=== PATIENT | female | born 1980 | race Caucasian/White ===

== ENCOUNTER 2017-02-01 10:46 | Outpatient (CLI) | payer OTHER ==
[2017-02-01 17:30] LABS: BASOPHILS % (AUTO) 0.6 %; EOSINOPHILS # (AUTO) 0.2 10^3/uL (0.0-0.7); EOSINOPHILS % (AUTO) 2.3 %; HGB - HEMOGLOBIN 13.4 g/dL (12.0-16.0); LYMPHOCYTES # (AUTO) 2.4 10^3/uL (1.5-3.5); LYMPHOCYTES % (AUTO) 34.9 %; MEAN CORPUSCULAR HEMOGLOBIN 28.1 pg (27.0-31.0); MEAN CORPUSCULAR HGB CONC 33.6 g/dL (32.0-36.0); MEAN CORPUSCULAR VOLUME 83.6 fL (81.0-99.0); MEAN PLATELET VOLUME 7.7 fL (7.9-10.8); MONOCYTES # (AUTO) 0.4 10^3/uL (0.0-1.0); MONOCYTES % (AUTO) 6.5 %; NEUTROPHILS # (AUTO) 3.8 10^3/uL (1.5-6.6); NEUTROPHILS % (AUTO) 55.7 %; NUCLEATED RED BLOOD CELLS AUTO 0.1 /100WBC; RED BLOOD COUNT 4.78 10^6/uL (4.20-5.40); RED CELL DISTRIBUTION WIDTH 13.6 % (12.0-15.0); UNCORRECTED WHITE BLOOD COUNT 6.9 x10^3/uL; WHITE BLOOD COUNT 6.9 x10^3/uL (4.8-10.8)
[2017-02-01 17:48] LABS: HEMOGLOBIN A1C 0.53 g/dL
[2017-02-01 17:50] LABS: ALBUMIN/GLOBULIN RATIO 1.4 (1.0-2.2); BILIRUBIN,TOTAL 0.6 mg/dL (0.2-1.0); BUN - BLOOD UREA NITROGEN 12 mg/dL (6-20); CALCIUM 8.9 mg/dL (8.5-10.3); CARBON DIOXIDE - CO2 25 mmol/L (21-32); CHLORIDE 108 mmol/L (101-111); CHOL/HDL RATIO 5.3 (<4.4); CHOLESTEROL 226 mg/dL; CREATININE 0.7 mg/dL (0.4-1.0); GFR - MDRD 94 (>89); GLUCOSE 103 mg/dL (70-100); HDL CHOLESTEROL 43 mg/dL; LDL/HDL RATIO 3.8 (<4.4); POTASSIUM 4.1 mmol/L (3.5-5.0); SODIUM 141 mmol/L (135-145); TRIGLYCERIDES 100 mg/dL; VLDL CHOLESTEROL 20 mg/dL
[2017-02-01 18:07] LABS: FERRITIN 25.2 ng/mL (11.0-306.8); TOTAL T3 1.3 ng/mL (0.87-1.78)
[2017-02-01 18:19] LABS: THYROID STIMULATING HORMONE 2.52 uIU/mL (0.34-5.60)
[2017-02-05 17:31] LABS: T3 REVERSE 10 ng/dL (8-25)
== END 2017-02-01 10:47 | disposition home or self-care (01) ==
LOC: LAB.F 10:46
PROVIDERS: ATTEND Family Medicine
DX: Z00.00 Encounter for general adult medical examination without abnormal findings (principal); R53.83 Other fatigue; E03.9 Hypothyroidism, unspecified; E55.9 Vitamin D deficiency, unspecified
CPT/HCPCS: 36415; 80053; 80061; 82306; 82626; 82728; 83036; 84439; 84443; 84480; 84481; 84482; 85025

== ENCOUNTER 2017-02-05 12:03 | Outpatient (CLI) | payer OTHER | END 2017-02-05 12:04 | disposition home or self-care (01) | LOC: DI.S 12:03 | PROVIDERS: ATTEND Family Medicine | DX: Z53.9 Procedure and treatment not carried out, unspecified reason (principal) ==

== ENCOUNTER 2017-08-01 21:08 | Emergency (ER) | payer OTHER ==
[2017-08-01 21:14] VITALS: BP 146/106
[2017-08-01] MEDS ORDERED: HYDROcod/ACETAM 5/325 MG TABLET PO STA (21:24)
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
--- NOTE | 2017-08-01 22:12 | XRAY Preliminary Report ---
Exam: XR SHOULDER 3 VIEW LT IMPRESSION: Normal shoulder radiography. [facility] SITE ID: [id number]
--- NOTE | 2017-08-01 22:13 | XRAY Preliminary Report ---
Exam: XR LUMBAR SPINE 2 VIEW IMPRESSION: 1. No lumbar fracture or malalignment seen. 2. Moderate L5-S1 disk height loss. [facility] SITE ID: [id number]
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
--- NOTE | 2017-08-01 22:18 | XRAY Preliminary Report ---
Exam: XR CERVICAL SPINE 2 VIEW IMPRESSION: No cervical fracture or malalignment identified. There are prominent prevertebral soft ti ssues at the cranial aspect of the cervical spine which may be projectional due to slight rotation. I f there is continued clinical concern for cervical spine fracture, there should be low threshold for CT. [facility] SITE ID: [id number]
[2017-08-01] MEDS ORDERED: HYDROcod/ACET 5/325 Prepack 6 PO STA (22:28)
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
== END 2017-08-01 22:40 | disposition home or self-care (01) ==
LOC: ED 21:08
DX: S19.9XXA Unspecified injury of neck, initial encounter (principal); V53.9XXA Unspecified occupant of pick-up truck or van injured in collision with car, pick-up truck or van in traffic accident, initial encounter; M54.5 Low back pain
CPT/HCPCS: 72040; 72100; 73030; 99283; A9270

== ENCOUNTER 2020-09-26 07:00 | Outpatient (CLI) | payer OTHER | END 2020-09-26 23:59 | disposition home or self-care (01) | LOC: LAB.S 07:00 | PROVIDERS: ATTEND Physician Assistant Medical | DX: R10.9 Unspecified abdominal pain (principal) | CPT/HCPCS: 87086 ==

== ENCOUNTER 2020-09-26 20:12 | Emergency (ER) | payer OTHER ==
--- NOTE | 2020-09-26 20:37 | ED Physician Documentation ---
PD HPI CHEST PAIN - Stated complaint Stated Complaint: ABD/BACK PX - Chief complaint Chief Complaint: Abd Pain - History obtained from History obtained from: Patient - Additional information Additional information: 39-year-old woman has had intermittent epigastric pain for a while now for the last 2 to 3 days has had severe pain radiating to the back. She does not notice an associated with eating. She is nauseous but has not vomited. No history of abdominal surgeries. She has been losing weight on purpose recently and has been successful. Review of Systems Constitutional: reports: Reviewed and negative Eyes: reports: Reviewed and negative Ears: reports: Reviewed and negative Nose: reports: Reviewed and negative Throat: reports: Reviewed and negative PD PAST MEDICAL HISTORY - Past Medical History Past Medical History: No - Past Surgical History Past Surgical History: No - Present Medications Home Medications: Ambulatory Orders Medication Instructions Recorded Confirmed DULoxetine [Cymbalta] 20 mg PO DAILY 08/01/17 08/01/17 HYDROcod/ACETAM 5/325 [[place] 5/325] 1 - 2 tab PO Q6H PRN #15 tablet 09/26/20 - Allergies Allergies/Adverse Reactions: Allergies Allergy/AdvReac Type Severity Reaction Status Date / Time No Known Drug Allergies Allergy Verified 09/26/20 20:16 - Social History Does the pt smoke?: No Smoking Status: Never smoker Does the pt drink ETOH?: No Does the pt have substance abuse?: No - Immunizations Immunizations are current?: Yes - POLST Patient has POLST: No PD ED PE NORMAL - Vitals Vital signs reviewed: Yes - General General: Alert and oriented X 3, No acute distress - Cardiac Cardiac: RRR, No murmur - Respiratory Respiratory: No respiratory distress, Clear bilaterally - Abdomen Abdomen: Other (Mild tenderness in the right upper quadrant with positive Whitaker sign. No flank tenderness. No lower abdominal or diffuse tenderness.) - Extremities Extremities: No edema, No calf tenderness / cord - Neuro Neuro: Alert and oriented X 3, Normal speech Results - Vitals Vitals: Vital Signs - 24 hr 09/26/20 09/26/20 20:16 20:28 Temperature 36.5 C 36.5 C Heart Rate 76 76 Respiratory 16 16 Rate Blood Pressure 160/100 H 160/100 H O2 Saturation 98 98 Oxygen O2 Source Room air - Labs Labs: Laboratory Tests 09/26/20 09/26/20 09/26/20 20:38 20:41 20:41 WBC 12.9 H RBC 5.06 Hgb 14.5 Hct 43.9 MCV 86.8 MCH 28.7 MCHC 33.0 RDW 12.5 Plt Count 324 MPV 10.0 Neut # (Auto) 10.1 H Lymph # (Auto) 2.0 [place] # (Auto) 0.7 Eos # (Auto) 0.1 Baso # (Auto) 0.0 Absolute Nucleated RBC 0.00 Nucleated RBC % 0.0 Sodium 138 Potassium 4.0 Chloride 105 Carbon Dioxide 24 Anion Gap 9.0 BUN 12 Creatinine 0.7 Estimated GFR (MDRD) 92 Glucose 111 H Calcium 9.5 Total Bilirubin 0.9 AST 449 H ALT 249 H Alkaline Phosphatase 76 Total Protein 7.4 Albumin 4.3 Globulin 3.1 Albumin/Globulin Ratio 1.4 Lipase 47 Urine Color DARK YELLOW Urine Clarity HAZY Urine pH 7.5 Ur Specific [place] 1.025 Urine Protein NEGATIVE Urine Glucose (UA) NEGATIVE Urine Ketones NEGATIVE Urine Occult Blood NEGATIVE Urine Nitrite NEGATIVE Urine Bilirubin NEGATIVE Urine Urobilinogen 1 (NORMAL) Ur Leukocyte Esterase SMALL H Urine RBC 0-5 Urine WBC 6-10 H Ur Squamous Epith Cells MOD Squamous H Urine Crystals 3-5 Calcium Oxalate Urine Bacteria Few Ur Microscopic Review INDICATED Urine Culture Comments NOT INDICATED Urine HCG, Qual NEGATIVE PD MEDICAL DECISION MAKING - ED course ED course: 39-year-old woman presents with worsening pain consistent with a biliary etiology. Labs show very modest white counts and modest elevation in liver enzymes. Ultrasound shows gallstones without evidence of cholecystitis. Also incidental fatty liver and nephrolith. Discussed need for surgical follow-up and signs and symptoms to return for. Departure - Departure Disposition: Home, Self Care Clinical Impression: Biliary colic Condition: Good Record reviewed to determine appropriate education?: Yes Instructions: ED Gallstone W Biliary Colic Follow-Up: Trevor Martin MD [Provider Admit Priv/Credential] - Prescriptions: HYDROcod/ACETAM 5/325 [[place] 5/325] 1 - 2 tab PO Q6H PRN #15 tablet PRN Reason: Pain Comments: Return if worsening, if your skin yellows, or if you develop fever. Otherwise as discussed you need to follow-up with a surgeon, calling tomorrow for an appointment to be evaluated for cholecystectomy.
[2020-09-26 20:48] LABS: GLUCOSE, URINE (UA) NEGATIVE (NEGATIVE); KETONES,URINE (UA) NEGATIVE (NEGATIVE); LEUKOCYTE ESTERASE, URINE SMALL (NEGATIVE); NITRITE,URINE NEGATIVE (NEGATIVE); OCCULT BLOOD,URINE NEGATIVE (NEGATIVE); PH,URINE 7.5 PH (5.0-7.5); PROTEIN,URINE NEGATIVE (NEGATIVE); UROBILINOGEN,URINE 1 (NORMAL) E.U./dL (NORMAL)
[2020-09-26 20:50] LABS: BASOPHILS % (AUTO) 0.2 %; EOSINOPHILS # (AUTO) 0.1 10^3/uL (0.0-0.7); EOSINOPHILS % (AUTO) 0.5 %; HCT - HEMATOCRIT 43.9 % (37.0-47.0); HGB - HEMOGLOBIN 14.5 g/dL (12.0-16.0); LYMPHOCYTES % (AUTO) 15.1 %; MEAN CORPUSCULAR HEMOGLOBIN 28.7 pg (27.0-31.0); MEAN CORPUSCULAR VOLUME 86.8 fL (81.0-99.0); MONOCYTES # (AUTO) 0.7 10^3/uL (0.0-1.0); MONOCYTES % (AUTO) 5.7 %; NEUTROPHILS # (AUTO) 10.1 10^3/uL (1.5-6.6); NEUTROPHILS % (AUTO) 78.3 %; PLT - PLATELET COUNT 324 10^3/uL (130-450); RED BLOOD COUNT 5.06 10^6/uL (4.20-5.40); RED CELL DISTRIBUTION WIDTH 12.5 % (12.0-15.0); WHITE BLOOD COUNT 12.9 x10^3/uL (4.8-10.8)
[2020-09-26 20:53] LABS: CLARITY,URINE HAZY (CLEAR); HCG UR QUAL NEGATIVE
[2020-09-26 20:54] LABS: BILIRUBIN,URINE NEGATIVE (NEGATIVE); ICTOTEST,URINE NEGATIVE
[2020-09-26 21:06] LABS: ALBUMIN 4.3 g/dL (3.2-5.5); ALBUMIN/GLOBULIN RATIO 1.4 (1.0-2.2); BILIRUBIN,TOTAL 0.9 mg/dL (0.2-1.0); CALCIUM 9.5 mg/dL (8.5-10.3); CREATININE 0.7 mg/dL (0.4-1.0); TOTAL PROTEIN 7.4 g/dL (6.7-8.2)
[2020-09-26 21:06] LABS: BACTERIA,URINE Few /HPF (None Seen); CRYSTALS,URINE 3-5 Calcium Oxalate /LPF; RBC,URINE 0-5 /HPF (0-5); SQUAMOUS EPITHELIAL CELL,UR MOD Squamous (<= Few)
[2020-09-26] MEDS ORDERED: HYDROcod/ACET 5/325 Prepack 4 PO STA (21:34)
--- NOTE | 2020-09-26 21:39 | Ultrasound Report ---
PROCEDURE: Abdomen Limited INDICATIONS: RUQ pain TECHNIQUE: Real-time focused scanning was performed of the abdomen, with image documentation. COMPARISON: 07/05/2013 FINDINGS: Liver is within normal limits. Gallbladder calculi are present with no evidence of gallbladder wall t hickening. No biliary ductal dilatation. Pancreas is not well seen. Right kidney demonstrates a 5 mm calculus without hydronephrosis. IMPRESSION: 1. Cholelithiasis with no evidence of cholecystitis. 2. Nonobstructing right renal calculus. Reviewed by: Camacho Lacy MD on 09/26/2020 9:38 PM PDT Approved by: Camacho Lacy MD on 09/26/2020 9:38 PM PDT Station ID: [id number]
[2020-09-26 21:54] VITALS: BP 135/95
== END 2020-09-26 21:55 | disposition home or self-care (01) ==
LOC: ED 20:12
DX: K80.70 Calculus of gallbladder and bile duct without cholecystitis without obstruction (principal); R10.9 Unspecified abdominal pain
CPT/HCPCS: 36415; 80053; 81001; 81003; 81025; 83690; 85025; 87086; 99284

== ENCOUNTER → 2020-12-13 | Outpatient (CLI) | payer OTHER | LOC: LAB.S 08:00 | PROVIDERS: ATTEND Physician Assistant | DX: J03.90 Acute tonsillitis, unspecified (principal) | CPT/HCPCS: 87070 ==

== ENCOUNTER 2021-02-02 15:15 | Outpatient (CLI) | payer OTHER | END 2021-02-02 23:59 | disposition home or self-care (01) | LOC: LAB.N 15:15 | PROVIDERS: ATTEND Physician Assistant Medical | DX: R05 Cough (principal); Z20.822 Contact with and (suspected) exposure to COVID-19 ==

== ENCOUNTER 2021-10-20 08:00 | Outpatient (CLI) | payer OTHER ==
[2021-10-20 20:03] LABS: BILIRUBIN,URINE NEGATIVE (NEGATIVE); GLUCOSE, URINE (UA) NEGATIVE (NEGATIVE); KETONES,URINE (UA) NEGATIVE (NEGATIVE); LEUKOCYTE ESTERASE, URINE SMALL (NEGATIVE); NITRITE,URINE NEGATIVE (NEGATIVE); OCCULT BLOOD,URINE NEGATIVE (NEGATIVE); PH,URINE 7.5 PH (5.0-7.5); PROTEIN,URINE NEGATIVE (NEGATIVE); UROBILINOGEN,URINE 0.2 (NORMAL) E.U./dL (NORMAL)
[2021-10-20 20:07] LABS: CLARITY,URINE HAZY (CLEAR)
[2021-10-20 20:12] LABS: BACTERIA,URINE Few /HPF (None Seen); RBC,URINE 0-5 /HPF (0-5); SQUAMOUS EPITHELIAL CELL,UR MOD Squamous (<= Few); WBC,URINE 0-3 /HPF (0-5)
== END 2021-10-20 23:59 | disposition home or self-care (01) ==
LOC: LAB.S 08:00
PROVIDERS: ATTEND Emergency Medicine
DX: N30.00 Acute cystitis without hematuria (principal)
CPT/HCPCS: 81001; 87086

== ENCOUNTER 2021-12-07 08:00 | Outpatient (CLI) | payer OTHER | END 2021-12-07 23:59 | disposition home or self-care (01) | LOC: LAB 08:00 | PROVIDERS: ATTEND Registered Nurse | DX: J02.9 Acute pharyngitis, unspecified (principal) | CPT/HCPCS: 87070 ==

== ENCOUNTER 2022-03-08 06:03 | Emergency (ER) | payer OTHER ==
[2022-03-08 06:34] LABS: BASOPHILS % (AUTO) 0.4 %; EOSINOPHILS # (AUTO) 0.1 10^3/uL (0.0-0.7); EOSINOPHILS % (AUTO) 0.6 %; HCT - HEMATOCRIT 39.5 % (37.0-47.0); HGB - HEMOGLOBIN 13.4 g/dL (12.0-16.0); LYMPHOCYTES # (AUTO) 1.4 10^3/uL (1.5-3.5); LYMPHOCYTES % (AUTO) 12.6 %; MEAN CORPUSCULAR HEMOGLOBIN 29.3 pg (27.0-31.0); MEAN CORPUSCULAR HGB CONC 33.9 g/dL (32.0-36.0); MEAN CORPUSCULAR VOLUME 86.2 fL (81.0-99.0); MEAN PLATELET VOLUME 9.5 fL (7.9-10.8); MONOCYTES # (AUTO) 0.8 10^3/uL (0.0-1.0); MONOCYTES % (AUTO) 7.6 %; NEUTROPHILS # (AUTO) 8.5 10^3/uL (1.5-6.6); NEUTROPHILS % (AUTO) 78.4 %; PLT - PLATELET COUNT 321 10^3/uL (130-450); RED BLOOD COUNT 4.58 10^6/uL (4.20-5.40); RED CELL DISTRIBUTION WIDTH 12.3 % (12.0-15.0); WHITE BLOOD COUNT 10.8 x10^3/uL (4.8-10.8)
[2022-03-08 06:35] LABS: BILIRUBIN,URINE NEGATIVE (NEGATIVE); GLUCOSE, URINE (UA) NEGATIVE (NEGATIVE); KETONES,URINE (UA) NEGATIVE (NEGATIVE); LEUKOCYTE ESTERASE, URINE TRACE (NEGATIVE); NITRITE,URINE NEGATIVE (NEGATIVE); OCCULT BLOOD,URINE NEGATIVE (NEGATIVE); PH,URINE 8.5 PH (5.0-7.5); PROTEIN,URINE NEGATIVE (NEGATIVE); UROBILINOGEN,URINE 1 (NORMAL) E.U./dL (NORMAL)
[2022-03-08 06:36] LABS: CLARITY,URINE CLOUDY (CLEAR)
[2022-03-08 06:38] LABS: HCG UR QUAL NEGATIVE
[2022-03-08] MEDS ORDERED: ONDANSETRON 4 MG/2 ML VIAL IVP STA ×3 (06:42→18:18)
[2022-03-08] MEDS ORDERED: MORPHINE 2 MG/ML CARPUJECT IVP STA ×2 (06:42→11:01)
[2022-03-08] MEDS ORDERED: SODIUM CHLORIDE 0.9% 1,000 ML IV STA ×3 (06:42→23:12)
[2022-03-08 06:43] LABS: AMORPHOUS SEDIMENT,UR Marked /LPF; BACTERIA,URINE Rare /HPF (None Seen); RBC,URINE None Seen /HPF (0-5); SQUAMOUS EPITHELIAL CELL,UR MOD Squamous (<= Few); WBC,URINE 0-3 /HPF (0-5)
--- NOTE | 2022-03-08 06:45 | ED Physician Documentation ---
History of Present Illness - Stated complaint Stated Complaint: ABD PX - Chief complaint Chief Complaint: Abd Pain - History obtained from History obtained from: Patient - Additonal information Additional information: 41-year-old woman with past medical history of gallstones diagnosed over a year ago presents with right upper quadrant pain radiating to the back that is intermittent, severe, starting around 8 PM last night and occurring into the early hours of this morning. Patient states that she has had attacks of gall like this in the past but never so protracted and severe.Denies fever, urinary symptoms. Does endorse nonbloody nonbilious vomiting. Review of Systems Ten Systems: 10 systems reviewed and negative Constitutional: denies: Fever, Chills GI: reports: Abdominal Pain, Nausea, Vomiting. denies: Diarrhea PD PAST MEDICAL HISTORY - Past Surgical History Past Surgical History: No - Present Medications Home Medications: Ambulatory Orders Medication Instructions Recorded Confirmed DULoxetine [Cymbalta] 20 mg PO DAILY 08/01/17 08/01/17 HYDROcod/ACETAM 5/325 [[place] 5/325] 1 - 2 tab PO Q6H PRN #15 tablet 09/26/20 - Allergies Allergies/Adverse Reactions: Allergies Allergy/AdvReac Type Severity Reaction Status Date / Time No Known Drug Allergies Allergy Verified 03/08/22 06:16 - Social History Does the pt smoke?: No Smoking Status: Never smoker Does the pt drink ETOH?: No Does the pt have substance abuse?: No - Immunizations Immunizations are current?: Yes - POLST Patient has POLST: No PD ED PE NORMAL - Vitals Vital signs reviewed: Yes - General General: Alert and oriented X 3, Other (Moderate distress) - HEENT HEENT: Atraumatic, PERRL, EOMI - Neck Neck: Supple, no meningeal sign - Cardiac Cardiac: RRR - Respiratory Respiratory: No respiratory distress, Clear bilaterally - Abdomen Abdomen: Other (Right upper quadrant tender to palpation. Discomfort diffusely.) - Back Back: No CVA TTP - Derm Derm: Normal color, Warm and dry - Extremities Extremities: No deformity - Neuro Neuro: No motor deficit, No sensory deficit - Psych Psych: Normal mood, Normal affect Results - Vitals Vitals: Vital Signs - 24 hr 03/08/22 06:13 Temperature 36.5 C Heart Rate 75 Respiratory 22 Rate Blood Pressure 170/98 H O2 Saturation 99 Oxygen O2 Source Room air - Labs Labs: Laboratory Tests 03/08/22 03/08/22 03/08/22 06:28 06:28 06:28 WBC 10.8 RBC 4.58 Hgb 13.4 Hct 39.5 MCV 86.2 MCH 29.3 MCHC 33.9 RDW 12.3 Plt Count 321 MPV 9.5 Neut # (Auto) 8.5 H Lymph # (Auto) 1.4 L [place] # (Auto) 0.8 Eos # (Auto) 0.1 Baso # (Auto) 0.0 Absolute Nucleated RBC 0.00 Nucleated RBC % 0.0 Urine Color YELLOW Urine Clarity CLOUDY Urine pH 8.5 H Ur Specific [place] 1.015 Urine Protein NEGATIVE Urine Glucose (UA) NEGATIVE Urine Ketones NEGATIVE Urine Occult Blood NEGATIVE Urine Nitrite NEGATIVE Urine Bilirubin NEGATIVE Urine Urobilinogen 1 (NORMAL) Ur Leukocyte Esterase TRACE H Ur Microscopic Review INDICATED Urine Culture Comments Not Reportable Urine HCG, Qual NEGATIVE PD MEDICAL DECISION MAKING - ED course ED course: 41-year-old woman presented with right upper quadrant abdominal pain consistent with gallstone colic. Symptomatic care provided. We will follow-up labs and reevaluate.
[2022-03-08 06:48] LABS: ALBUMIN 4.1 g/dL (3.2-5.5); ALBUMIN/GLOBULIN RATIO 1.3 (1.0-2.2); BILIRUBIN,TOTAL 1.7 mg/dL (0.2-1.0); CALCIUM 8.9 mg/dL (8.5-10.3); CREATININE 0.6 mg/dL (0.4-1.0); POTASSIUM 3.9 mmol/L (3.5-5.0); TOTAL PROTEIN 7.3 g/dL (6.7-8.2)
--- OUTSIDE RECORDS SUMMARY | 2022-03-08 07:12 | EXTERNAL MEDICAL SUMMARY RPT | Continuity of Care Document ---
:1980 Author Organization [place] Address [address] [place] [address] Phone Allergies No information. Encounters No information. Functional Status No information. Immunizations No information. Medications date description facility +0000 clotrimazole [facility] +0000 fluconazole [facility] +0000 clotrimazole [facility] [place] +0000 fluconazole [facility] Problems No information. Procedures date description facility +0000 Visit Code Hold [facility] Results/Labs No information. Social History No information. Vital Signs date measurement value units +0000 BMI BMI 38.04 kg/m2 +0000 BP_diastolic BP_diastolic 106 mm[H g] +0000 BP_systolic BP_systolic 157 mm[Hg] +0000 heart_rate heart_rate 84 /min +0000 height_metric height_metric 170.18 cm +0000 height_standard height_standard 67 in +0000 respiration_rate respiration_rate 15 /min +0000 temperature_metric temperature_metric 36.39 C +0000 temperature_standard temperature_standard 9 7.5 F +0000 weight_metric weight_metric 109.77 kg +0000 weight_standard weight_standard 242 lb
--- NOTE | 2022-03-08 08:53 | Ultrasound Report ---
PROCEDURE: Abdomen Limited INDICATIONS: gallbladder ultrasound TECHNIQUE: Real-time scanning was performed of the abdominal and retroperitoneal organs, with image documentatio n. COMPARISON: None. FINDINGS: Liver: Liver is normal in size and homogeneous in echotexture. Gallbladder: Focus of nonmobile echogenicity is noted along the posterior wall without vascular flow. Wall thickness is within normal limits measuring 2.8 mm. Positive sonographic Whitaker's sign is prese nt. Biliary ducts: Intrahepatic bile ducts are non-dilated. Extrahepatic bile duct caliber measures 7.7 mm. Normal is 6-7 mm or less in diameter, or 10 mm or less post-cholecystectomy. Pancreas: Visualized portions of the pancreas are sonographically normal. Kidneys: Right kidney measures 11.3 cm long. No hydronephrosis or nephrolithiasis. No solid masses . Aorta: Visualized aorta is normal in caliber at less than 3 cm. Iliacs: Proximal common iliac arteries are normal in caliber at less than 2.5 cm. IVC: Intrahepatic inferior vena cava is patent. Miscellaneous: No free abdominal fluid. IMPRESSION: Focus of presumed adherent sludge is present. Wall thickness is within normal limits. Although a sono graphic Whitaker's sign is present, other imaging findings are not definitively conclusive for acute ch olecystitis and clinical correlation is recommended. Reviewed by: Silvia Hendrix MD on 03/08/2022 8:51 AM PDT Approved by: Silvia Hendrix MD on 03/08/2022 8:51 AM PDT Station ID: [id number]
[2022-03-08] MEDS ORDERED: PIPERACILLIN/TAZOBACTAM 4.5 GM in SODIUM CHLORIDE 0.9% MINIBAG 100 ML IV STA (08:59)
[2022-03-08] MEDS ORDERED: KETOROLAC 30 MG/ML VIAL IVP STA (09:08)
[2022-03-08 09:33] LABS: BASOPHILS % (AUTO) 0.3 %; EOSINOPHILS % (AUTO) 0.4 %; HCT - HEMATOCRIT 39.3 % (37.0-47.0); LYMPHOCYTES # (AUTO) 1.4 10^3/uL (1.5-3.5); LYMPHOCYTES % (AUTO) 13.6 %; MEAN CORPUSCULAR HEMOGLOBIN 29.1 pg (27.0-31.0); MEAN CORPUSCULAR HGB CONC 33.1 g/dL (32.0-36.0); MEAN CORPUSCULAR VOLUME 88.1 fL (81.0-99.0); MEAN PLATELET VOLUME 9.5 fL (7.9-10.8); MONOCYTES # (AUTO) 0.9 10^3/uL (0.0-1.0); MONOCYTES % (AUTO) 8.6 %; NEUTROPHILS # (AUTO) 8.1 10^3/uL (1.5-6.6); NEUTROPHILS % (AUTO) 76.9 %; PLT - PLATELET COUNT 307 10^3/uL (130-450); RED BLOOD COUNT 4.46 10^6/uL (4.20-5.40); RED CELL DISTRIBUTION WIDTH 12.4 % (12.0-15.0); WHITE BLOOD COUNT 10.5 x10^3/uL (4.8-10.8)
[2022-03-08 10:14] LABS: ALBUMIN 3.8 g/dL (3.2-5.5); ALBUMIN/GLOBULIN RATIO 1.2 (1.0-2.2); BILIRUBIN,TOTAL 1.7 mg/dL (0.2-1.0); CALCIUM 8.9 mg/dL (8.5-10.3); CREATININE 0.6 mg/dL (0.4-1.0); POTASSIUM 4.8 mmol/L (3.5-5.0); TOTAL PROTEIN 7.1 g/dL (6.7-8.2)
[2022-03-08] MEDS ORDERED: GADOBUTROL 15 MMOL/15 ML VIAL ONE (11:40)
--- NOTE | 2022-03-08 11:45 | ED Physician Documentation ---
ED Addendum - Addendum Addendum: 03/08/22 0909 -Discussed with mobile electronics installer general surgeon, Dr. Johnson. Agrees with plan for MRCP. Recommends rechecking labs. Does agree with plan that patient would likely need transfer if labs are not improved or MRCP shows bile duct stone and patient continues to have symptoms. 1148 - Repeat labs show significantly elevated lipase from previous. Patient will require transfer to facility with GI with ERCP capabilities. Per Dr. Johnson, they may wait to see if pancreatitis will resolve with treatment but may require ERCP to clear stone With the understanding that this may also cause pancreatitis. 03/08/22 12:57 D/W Dr Franklin (, [facility]). Reviewed presentation and work-up including results of MRCP and most recent labs with elevated lipase. Agrees with plan for transfer. He is willing to consult if they have beds and hospitalist is willing to admit. He recommends holding antibiotics at this time as she does not have signs of Ascending cholangitis with fever or leukocytosis. 03/08/22 19:10 Patient signed out to Dr. Jha at shift change. As she is still awaiting transfer to facility with GI and ERCP capabilities. Departure - Departure Disposition: 02 Transfer Acute Care Hosp Clinical Impression: Choledocholithiasis, Pancreatitis Condition: Stable
--- NOTE | 2022-03-08 12:48 | MRI Report ---
PROCEDURE: MRCP W/WO INDICATIONS: RUQ pain/abnormal labs CONTRAST: IV CONTRAST: Gadavist ml: 11 TECHNIQUE: Coronal ultra fast SE through the abdomen, axial 2-D spoiled GE in- and [id number], and breath-hold T2 FSE with fat saturation through the biliary system and pancreas. Oblique coronal and axial thin- slice ultra fast SE, radial thick-slab ultra fast SE centered on the extrahepatic bile ducts. COMPARISON: Ultrasound dated 03/08/2022 FINDINGS: Image quality: Excellent. Pancreas and biliary system: There is mild intrahepatic and extrahepatic biliary ductal dilatation. C ommon bile duct measures 10 mm diameter. Probable small calculus within the distal common bile duct m easuring roughly 2 mm. Pancreas is normal in morphology. Moderate fluid signal surrounds the pancreas . There is severe internal T2 signal elevation within the pancreatic body and uncinate process. Pancr eatic duct is normal in caliber, without developmental anomalies. Gallbladder demonstrates multiple small calculi within its lumen. There is a small amount of pericholecystic fluid at its superior aspe ct. Other solid organs: Liver and spleen are normal in size. No adrenal nodules. Both kidneys are norm al in size, without hydronephrosis. Nodes and vessels: No retroperitoneal or mesenteric adenopathy by size criteria. Aorta and inferior vena cava are normal in size. Bowel and peritoneum: Unenhanced bowel loops are normal in caliber. No free fluid. Lung bases: No basal pleural effusions. Heart size is normal. Bones and soft tissues: No ventral hernias. Bone marrow is of normal overall signal. IMPRESSION: 1. Acute pancreatitis. 2. Probable small distal common bile duct calculus associated with mild biliary ductal dilatation. 3. Cholelithiasis. 4. Small amount of pericholecystic fluid which could indicate developing cholecystitis. Reviewed by: Camacho Lacy MD on 03/08/2022 12:47 PM PDT Approved by: Camacho Lacy MD on 03/08/2022 12:47 PM PDT Station ID: [id number]
[2022-03-08] MEDS ORDERED: GADOBUTROL 15 MMOL/15 ML VIAL IVP ONE (13:29)
[2022-03-08] MEDS ORDERED: HYDROmorphone 1 MG/ML CARPUJECT IVP STA ×2 (14:47→17:48)
[2022-03-08] MEDS: DULoxetine 20 MG CAPSULE PO SCH (23:28)
[2022-03-09] MEDS ORDERED: HYDROmorphone 1 MG/ML CARPUJECT IVP STA ×2 (00:28→09:44)
[2022-03-09] MEDS ORDERED: ONDANSETRON 4 MG/2 ML VIAL IVP STA ×2 (00:28→03:49)
[2022-03-09] MEDS ORDERED: diphenhydrAMINE INJ 50 MG/ML VIAL IVP STA (03:49)
[2022-03-09 07:29] LABS: BASOPHILS % (AUTO) 0.1 %; EOSINOPHILS % (AUTO) 0.1 %; HCT - HEMATOCRIT 39.2 % (37.0-47.0); HGB - HEMOGLOBIN 13.2 g/dL (12.0-16.0); LYMPHOCYTES # (AUTO) 1.1 10^3/uL (1.5-3.5); LYMPHOCYTES % (AUTO) 9.7 %; MEAN CORPUSCULAR HEMOGLOBIN 29.6 pg (27.0-31.0); MEAN CORPUSCULAR HGB CONC 33.7 g/dL (32.0-36.0); MEAN CORPUSCULAR VOLUME 87.9 fL (81.0-99.0); MEAN PLATELET VOLUME 9.5 fL (7.9-10.8); MONOCYTES # (AUTO) 0.8 10^3/uL (0.0-1.0); MONOCYTES % (AUTO) 6.4 %; NEUTROPHILS # (AUTO) 9.8 10^3/uL (1.5-6.6); NEUTROPHILS % (AUTO) 83.3 %; PLT - PLATELET COUNT 277 10^3/uL (130-450); RED BLOOD COUNT 4.46 10^6/uL (4.20-5.40); RED CELL DISTRIBUTION WIDTH 12.4 % (12.0-15.0); WHITE BLOOD COUNT 11.8 x10^3/uL (4.8-10.8)
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
[2022-03-09 07:55] LABS: ALBUMIN 3.6 g/dL (3.2-5.5); ALBUMIN/GLOBULIN RATIO 1.2 (1.0-2.2); BILIRUBIN,TOTAL 1.2 mg/dL (0.2-1.0); CALCIUM 8.5 mg/dL (8.5-10.3); CREATININE 0.6 mg/dL (0.4-1.0); TOTAL PROTEIN 6.5 g/dL (6.7-8.2)
[2022-03-09] MEDS: DULoxetine 20 MG CAPSULE PO SCH (09:54)
[2022-03-09] MEDS ORDERED: ONDANSETRON 4 MG/2 ML VIAL IVP PRN (13:25)
[2022-03-09] MEDS ORDERED: SODIUM CHLORIDE 0.9% 2,000 ML IV STA (13:25)
[2022-03-09] MEDS: MORPHINE 2 MG/ML CARPUJECT IVP PRN ×2 (15:50→17:57)
[2022-03-09 17:06] VITALS: BP 129/71
== END 2022-03-09 18:15 | disposition short-term general hospital (02) ==
LOC: ED 06:03
DX: K85.10 Biliary acute pancreatitis without necrosis or infection (principal)
CPT/HCPCS: 36415; 74183; 76705; 80053; 81001; 81025; 83690; 85025; 87635; 96365; 96375; 96376; 99284; 99285; A9270; A9585; J1170; J1200; 81003; 87086

== ENCOUNTER 2022-03-09 18:11 | Outpatient (CLI) | payer OTHER | END 2022-03-09 18:12 | disposition short-term general hospital (02) | LOC: EMS 18:11 | PROVIDERS: ATTEND Emergency Medicine | DX: K80.50 Calculus of bile duct without cholangitis or cholecystitis without obstruction (principal); K85.90 Acute pancreatitis without necrosis or infection, unspecified | CPT/HCPCS: A0425; A0428 ==

== ENCOUNTER 2022-06-13 07:00 | Outpatient (CLI) | payer OTHER ==
--- NOTE | 2022-06-13 16:21 | XRAY Report ---
PROCEDURE: Wrist 3 View LT INDICATIONS: PAIN IN LEFT WRIST TECHNIQUE: 3 views of the wrist were acquired. COMPARISON: None FINDINGS: Bones: No fractures or dislocations. No suspicious bony lesions. Scaphoid view: Not requested Soft tissues: No suspicious soft tissue calcifications. IMPRESSION: No acute fracture. No osseous lesion. If symptoms and/or clinical suspicion for pathology continue, f urther assessment with repeat plain films, or advanced imaging (e.g., CT, MRI, or bone scan) is recom mended for further assessment. Reviewed by: Camacho Lacy MD on 06/13/2022 4:20 PM PST Approved by: Camacho Lacy MD on 06/13/2022 4:20 PM PST Station ID: [id number]
== END 2022-06-13 07:01 | disposition home or self-care (01) ==
LOC: DI.S 07:00
PROVIDERS: ATTEND Physician Assistant
DX: M25.532 Pain in left wrist (principal)

== ENCOUNTER 2022-06-21 15:45 | Outpatient (CLI) | payer OTHER ==
--- NOTE | 2022-06-22 09:35 | CT Report ---
PROCEDURE: UPPER EXTREMITY WO - LT INDICATIONS: CONTUSION OF LEFT WRIST TECHNIQUE: Noncontrast 1 mm axial sections were acquired through the wrist, with coronal and sagittal reformats. For radiation dose reduction, the following was used: automated exposure control, adjustment of mA and/or kV according to patient size. COMPARISON: Left wrist radiographs 06/13/2022 FINDINGS: Image quality: Excellent. Bones: No acute osseous fracture or dislocation. Carpal bones are normally aligned. No significant d egenerative changes. No suspicious osseous lesion. Soft tissues: No significant joint effusion. Mild saphenous edema surrounding the wrist. The articul ar cartilages, ligaments, and tendons are not well evaluated with standard CT. The musculature of the distal forearm and hand is normal in bulk. IMPRESSION: No significant osseous abnormality is seen in the wrist. If symptoms persist or there is clinical concern for soft tissue injury, MRI could be performed for further evaluation. Reviewed by: Hiram Hinson MD on 06/22/2022 9:34 AM [facility] Approved by: Hiram Hinson MD on 06/22/2022 9:34 AM PST Station ID: [id number]
== END 2022-06-21 15:46 | disposition home or self-care (01) ==
LOC: DI 15:45
PROVIDERS: ATTEND Physician Assistant
DX: S60.212A Contusion of left wrist, initial encounter (principal)

== ENCOUNTER 2022-09-04 20:57 | Outpatient (CLI) | payer OTHER ==
--- NOTE | 2022-09-05 08:28 | XRAY Report ---
PROCEDURE: Abdomen 1 View X-Ray INDICATIONS: MYALGIA RIGHT FLANK TECHNIQUE: One view of the abdomen acquired. COMPARISON: None FINDINGS: Surgical changes and devices: It appears patient is status post cholecystectomy. Bowel: Bowel gas pattern is normal. Soft tissues: No suspicious abdominal calcifications. Visualized solid organ contours appear normal in size. Bones: No suspicious bony lesions. IMPRESSION: 1. Nonspecific bowel gas pattern. 2. No definite pathologic calcifications identified. Reviewed by: Rosendo Dennis MD on 09/05/2022 8:26 AM PDT Approved by: Rosendo Dennis MD on 09/05/2022 8:26 AM PDT Station ID: [id number]
--- NOTE | 2022-09-05 11:31 | Ultrasound Report ---
PROCEDURE: Retroperitoneal INDICATIONS: MYALGIA RIGHT FLANK TECHNIQUE: Real-time scanning was performed of the retroperitoneal organs, with image documentation. COMPARISON: None. FINDINGS: Kidneys: Kidneys are normal in size. Right kidney measures 10.9 cm long; left kidney measures 9.4 c m long. Right renal cortical thickness is 1.2 cm; left renal cortical thickness is 1.4 cm. No solid masses, hydronephrosis, or nephrolithiasis. Bladder: Pre-void bladder volume is 448 mL. Post-void residual is 2 mL. Pre-void images demonstrat e no intraluminal masses or stones. On pre-void images, both ureteral jets are noted with color Dopp ler interrogation. (Of note, ureteral jets may not be detectable in up to 25% of cases due to insuff icient differences in specific gravity between ureteral and bladder urine). Miscellaneous: No free abdominal fluid. IMPRESSION: Normal renal ultrasound. No hydronephrosis. Reviewed by: Ankush Lopez on 09/05/2022 11:30 AM PDT Approved by: Ankush Lopez on 09/05/2022 11:30 AM PDT Station ID: [id number]
== END 2022-09-04 20:58 | disposition home or self-care (01) ==
LOC: DI 20:57
PROVIDERS: ATTEND Naturopath
DX: M79.18 Myalgia, other site (principal)

== ENCOUNTER 2022-12-20 19:29 | Outpatient (CLI) | payer OTHER ==
--- NOTE | 2022-12-21 10:23 | Ultrasound Report ---
PROCEDURE: Ext Limited Non Vascular INDICATIONS: LUMP IN RIGHT LOWER LIMB TECHNIQUE: Real-time scanning was performed of the right lower leg, with image documentation. COMPARISON: None. FINDINGS: Focused ultrasound examination of distal right lower leg at patient's reported area of pal pable lump near the level of tibiotalar joint shows no discrete soft tissue mass or fluid collection. IMPRESSION: No abnormality is seen in anterior distal lower leg at patient's reported area of palpab le lump. Reviewed by: James Loja MD on 12/21/2022 10:22 AM PDT Approved by: James Loja MD on 12/21/2022 10:22 AM PDT Station ID: [id number]
--- NOTE | 2022-12-21 11:51 | XRAY Report ---
PROCEDURE: Ankle 3 View RT INDICATIONS: LUMP IN RIGHT LOWER LIMB TECHNIQUE: 3 views of the ankle were acquired. COMPARISON: None. FINDINGS: Bones: No fractures or dislocations. Ankle mortise is normally aligned. No suspicious bony lesions . Soft tissues: No tibiotalar joint effusion. Achilles tendon appears normal. IMPRESSION: No acute bony abnormality. If soft tissue concern persists, MRI is recommended. Reviewed by: Silvia Hendrix MD on 12/21/2022 11:50 AM PDT Approved by: Silvia Hendrix MD on 12/21/2022 11:50 AM PDT Station ID: [id number]
== END 2022-12-20 19:30 | disposition home or self-care (01) ==
LOC: DI 19:29
PROVIDERS: ATTEND Naturopath
DX: R22.41 Localized swelling, mass and lump, right lower limb (principal)

== ENCOUNTER 2023-11-01 09:25 | Outpatient (CLI) | payer OTHER | END 2023-11-01 23:59 | disposition critical access hospital (66) | LOC: EMS 09:25 | PROVIDERS: ATTEND Emergency Medicine | DX: R10.84 Generalized abdominal pain (principal); R10.811 Right upper quadrant abdominal tenderness; R11.0 Nausea | CPT/HCPCS: A0425; A0427 ==